=== PATIENT | female | born 2000 | race African-American/Black ===

== ENCOUNTER 2018-12-21 08:44 | Emergency (ER) | payer BC ==
[~2018-12-21] VITALS: Ht 154.9 cm; Wt 50.8 kg
[2018-12-21 09:02] LABS: URINE BLOOD NEGATIVE (Negative); URINE CLARITY CLEAR; URINE COLOR YELLOW; URINE GLUCOSE-RANDOM* NEGATIVE (Negative); URINE KETONES 1+ (Negative); URINE LEUKOCYTES NEGATIVE (Negative); URINE NITRITE NEGATIVE (Negative); URINE PROTEIN (DIPSTICK) TRACE (Negative); URINE SPECIFIC GRAVITY 1.025 (1.005-1.035)
[2018-12-21 09:07] LABS: ICTOTEST (BILI CONFIRMATORY) Negative (Negative); URINE BILIRUBIN NEGATIVE (Negative)
[2018-12-21 09:14] LABS: ABSOLUTE NEUTROPHILS 2.3 thou/uL (1.4-8.2); BASOPHILS 1.1 % (0.0-2.0); EOSINOPHILS 2.1 % (0.0-3.0); HEMATOCRIT 35.3 % (37.0-47.0); HEMOGLOBIN 11.6 gm/dL (12.0-15.0); LYMPHOCYTES 36.5 % (24.0-44.0); MCH 27.1 pg (26.0-34.0); MCHC 32.9 g/dL (28.0-37.0); MCV 82.2 fL (80.0-100.0); MONOCYTES 7.5 % (1.0-8.0); PLATELET COUNT 403 thou/uL (150-400); POLYS 52.8 % (36.0-66.0); WBC 4.3 thou/uL (4.0-11.0)
[2018-12-21 09:21] LABS: CALCIUM 9.8 mg/dL (8.5-10.1); CREATININE 0.9 mg/dL (0.6-1.0); POTASSIUM 3.2 mmol/L (3.5-5.1)
[2018-12-21 09:27] LABS: ALBUMIN 4.4 g/dL (3.4-5.0); TOTAL BILIRUBIN 0.4 mg/dL (<0.1-1.0); TOTAL PROTEIN 8.8 g/dL (6.4-8.2)
[2018-12-21] MEDS ORDERED: TRAMADOL 50 MG50 MG PO (11:09)
[2018-12-21] MEDS ORDERED: ONDANSETRON ODT8 MG PO (11:09)
[2018-12-21 11:11] VITALS: BP 101/62
== END 2018-12-21 11:34 | disposition home or self-care (01) ==
LOC: ER 08:44
PROVIDERS: Emergency Medicine
DX: R10.11 Right upper quadrant pain (principal); E87.6 Hypokalemia; R11.2 Nausea with vomiting, unspecified; K59.00 Constipation, unspecified

== ENCOUNTER 2021-03-19 18:43 | Emergency (ER) | payer BC ==
[~2021-03-19] VITALS: Ht 144.8 cm; Wt 41.7 kg
[~2021-03-19 18:43] MED LIST: ONDANSETRON ODT8 MG PO; TRAMADOL 50 MG50 MG PO
[2021-03-19] MEDS ORDERED: NOHOMEMEDICATIONS (19:13)
[2021-03-19] MEDS ORDERED: ZPAK PO (20:01)
[2021-03-19 20:20] VITALS: BP 112/56
== END 2021-03-19 20:20 | disposition home or self-care (01) ==
LOC: ER 18:43
DX: J18.9 Pneumonia, unspecified organism (principal); M54.9 Dorsalgia, unspecified; Z20.822 Contact with and (suspected) exposure to COVID-19; Z79.899 Other long term (current) drug therapy